=== PATIENT | female | born 1975 | race Caucasian/White ===

== ENCOUNTER 2024-01-17 15:34 | Emergency (ER) | payer OTHER ==
[~2024-01-17] VITALS: Ht 162.6 cm; Wt 88.9 kg
[~2024-01-17 15:34] MED LIST: ACET500 PO; ALBU90OI61; AMIT10 PO; AMIT25 PO; AMIT50 PO; Esgic Tablet1 EACH PO; HYDR10; Inderal 20 mg T20 MG PO; KETO10 PO; LOSA25 PO; MECL25 PO; MEDR10 PO; MIRT15 PO; MIRT30; MIRT30 PO; Motion Sickness25 M1 PO; NICO14TP TOP; NICO21TP TD; Omeprazole20 M1 PO; PROC10 PO; Percocet 5-3251 EACH PO; QUET100 PO; SUMA25 PO; Vibramycin100 MG PO
[2024-01-17 16:14] LABS: Hematocrit 38.7 % (33.0-51.0); Hemoglobin 12.9 g/dL (11.5-16.0); Red Blood Cell Count 4.26 M/mm3 (3.80-5.20); White Blood Cell Count 6.29 K/mm3 (4.00-11.30)
[2024-01-17 16:15] LABS: BASOPHILS ABSOLUTE AUTO 0.02 K/mm3 (0.00-0.23); BASOPHILS PERCENT AUTO 0 % (0-2); EOSINOPHILS ABSOLUTE AUTO 0.23 K/mm3 (0.00-0.68); EOSINOPHILS PERCENT AUTO 4 % (0-6); IMMATURE GRAN ABSOLUTE AUTO 0.01 K/mm3 (0.00-0.10); IMMATURE GRAN PERCENT AUTO 0 % (0-1); LYMPHOCYTES ABSOLUTE AUTO 2.09 K/mm3 (0.84-5.20); LYMPHOCYTES PERCENT AUTO 33 % (21-46); MONOCYTES ABSOLUTE AUTO 0.47 K/mm3 (0.16-1.47); MONOCYTES PERCENT AUTO 8 % (4-13); Mean Corpuscular HGB 30.3 pg (26.0-34.0); Mean Corpuscular HGB Conc 33.3 g/dL (31.5-36.5); Mean Corpuscular Volume 91 fL (80-100); Mean Platelet Volume 10.4 fL (9.1-12.4); NEUTROPHILS ABSOLUTE AUTO 3.47 K/mm3 (1.96-9.15); NEUTROPHILS PERCENT AUTO 55 % (41-73); Platelet Count 181 K/mm3 (150-400); RDW Coefficient Variation 12.7 % (11.7-14.2); RDW Standard Deviation 41.5 fL (35.1-46.3)
[2024-01-17 16:35] LABS: U Amphetamine Screen Not Detected; U Barbituate Screen Not Detected; U Benzodiazapine Screen Not Detected; U Buprenorphine Screen Not Detected; U Cannabinoids Screen DETECTED; U Cocaine Screen Not Detected; U Methadone Screen Not Detected; U Methamphetamine Screen Not Detected; U Opiates Screen Not Detected; U Oxycodone Screen Not Detected; U Phencyclidine Screen Not Detected
[2024-01-17 16:36] LABS: Albumin, Blood 3.8 g/dL (3.4-5.0); Bilirubin, Total 0.3 mg/dL (0.1-1.0); Bun/Creatinine Ratio 16.1 (12.0-20.0); Calcium, Blood 8.8 mg/dL (8.5-10.1); Creatinine, Blood 0.62 mg/dL (0.40-1.00); Globulin, Blood 3.7 g/dL (2.2-4.0); Potassium, Blood 3.4 mmol/L (3.5-5.5); Total Protein, Blood 7.5 g/dL (6.4-8.2)
[2024-01-17] MEDS ORDERED: OLANZAPINE1024 PO (19:40)
[2024-01-17] MEDS ORDERED: Ibuprofen 600 MG Tab PO ONE (20:15)
[2024-01-17 20:22] VITALS: BP 189/74
== END 2024-01-17 20:25 | disposition home or self-care (01) ==
LOC: ER 15:34
PROVIDERS: Physician Assistant
DX: R07.82 Intercostal pain (principal); J45.909 Unspecified asthma, uncomplicated; F17.210 Nicotine dependence, cigarettes, uncomplicated; Z79.899 Other long term (current) drug therapy; Z88.5 Allergy status to narcotic agent; Z88.6 Allergy status to analgesic agent; Z91.048 Other nonmedicinal substance allergy status
CPT/HCPCS: 71046; 80053; 83690; 84484; 85025; 93005; 93010; 99285-25; A9270

== ENCOUNTER 2024-02-05 12:03 | Inpatient (IN) | payer OTHER ==
[~2024-02-05 12:03] MED LIST changes: +OLANZAPINE1024 PO
[2024-02-05] MEDS ORDERED: LOSA50 PO (15:40)
[2024-02-05] MEDS ORDERED: LORazepam 2 MG Tab PO PRN ×2 (15:50)
[2024-02-05] MEDS ORDERED: Haloperidol 5 MG Tab PO PRN ×2 (15:50→15:55)
[2024-02-05] MEDS ORDERED: FLU VACC TS2024-25(6MOS UP)/PF 45 MCG/0.5 ML SYRINGE IM SCH (15:50)
[2024-02-05] MEDS ORDERED: Nicotine 21 MG PATCH TOP ONE (17:25)
--- NOTE | 2024-02-05 17:56 | NUR ---
Shift Summary Pt A/O x4; pleasant and cooperative with care. She was admitted from the ED for depression with SI. She currently denies SI but does feel very hopeless. She was recently incarcerated and is currently living at the [facility]. She denies HI but does report some AH and VH, however they are non-commanding. Pt was oriented to the unit and given a snack/shower. Home medications reconciled. Pt monitored via Q15 checks for safety.
[2024-02-05] MEDS ORDERED: Acetaminophen 500 MG Tab PO PRN (19:20)
--- NOTE | 2024-02-06 04:22 | NUR ---
Helene resting in bed at start of shift appearing well-groomed, appears well-groomed with sad and depressed affect. Endorses passive SI with no plan and stated I feel much better now that I am here. Pt reported feeling tired, and wanting to just rest. Patient did come out of room and attend snack time with peers. PRN Tylenol given as ordered for 10 headache with the medication being effective. Pt retired to room independently, fell asleep without difficulty, and appeared to sleep all of shift, with normal chest rise and fall observed. Safety checks maintained at 15-minute intervals throughout shift.
[2024-02-06 07:29] VITALS: BP 121/80
--- NOTE | 2024-02-06 08:22 | NUR ---
AM ASSESSMENT PT PLEASANT AND COOPERATIVE. DENIES SI/HI AVH AT THIS TIME. PT REPORTS HOME MEDS OF ZYPREXA, LOSARTAN, AND ALB INH. WILL INFORM PROVIDER THIS A.M. PT REPORTS HX OF SMOKING AND REQUESTING MORNING LILLY PATCH. PT CONTINUES TO HANG OUT AROUND NURSES STATION TO OBSERVE AND NOT BE SECULED. WILL CONTINUE TO MONITOR AND PROVIDE SUPPORT NEEDED.
[2024-02-06] MEDS ORDERED: Nicotine 21 MG PATCH TOP SCH (09:00)
[2024-02-06] MEDS ORDERED: TraZODone HCl 50 MG Tab PO PRN (10:35)
[2024-02-06] MEDS ORDERED: Albuterol HFA200 ACT/6.7 GM INH INH PRN (11:45)
[2024-02-06] MEDS ORDERED: Losartan Potassium 50 MG Tab PO ONE (12:30)
[2024-02-06] MEDS ORDERED: OLANZapine 10 MG Tab PO ONE (12:30)
--- NOTE | 2024-02-06 18:03 | NUR ---
SHIFT ASSESSMENT PT VERY PLEASANT AND COOPERATIVE. PT DENIES SI/HI OR AVH THIS SHIFT. PT STARTED HOME MEDS TODAY OF ZYPREXA AND LOSARTAN, PROVIDER ORDERED TRAZODONE @HS. PT USE OF TYLENOL 2X TODAY FOR HEADACHE 01/03 AND 12/04 PAIN. PT USE OF 21MG LILLY PATCH. PT SPOKE WITH DAD THIS AFTERNOON WHO IN AN INPATIENT AT [facility] AND SCHEDULED VISIT TOMORROW. PT HAS PARTICIPATED IN GROUPS AND ACTIVITIES W/ PEERS AND STAFF W/OUT CONCERN. WILL CONTINUE TO MONITOR AND PROVIDE SUPPORT NECESSARY.
[2024-02-06] MEDS ORDERED: Simethicone 80 MG Chew PO PRN (19:21)
[2024-02-06 20:30] VITALS: BP 123/82
[2024-02-06] MEDS ORDERED: OLANZapine 10 MG Tab PO SCH (21:00)
--- NOTE | 2024-02-06 22:50 | NUR ---
Helene resting in bed at the start of shift reading a book. Pt reported feeling better today, and endorsed intermittent thoughts of SI. Pt endorsed having an earache; Tylenol given with HS meds along with Simethicone for complaints of gas. Patient ate HS snack with peers and retired to room independently. Patient fell asleep without difficulty with normal chest rise and fall observed. Safety checks maintained at 15-minute intervals throughout the shift.
--- NOTE | 2024-02-07 04:22 | NUR ---
PATIENT WAS IN BED RESTING WHEN THIS RN CAME ON DUTY AT 0000. SHE CONTINUES TO REST QUIETLY IN BED WITH RESPIRATIONS CONFIRMED. SHE HAS HAD NO S/SX SUICIDAL IDEATION OR SELF HARM THIS SHIFT. CONTINUING TO MONITOR FOR SAFETY WITH Q15 MINUTE CHECKS.
[2024-02-07] MEDS ORDERED: Losartan Potassium 50 MG Tab PO SCH (09:00)
--- NOTE | 2024-02-07 18:07 | NUR ---
SHIFT SUMMARY PT AA&OX4. PLEASANT AND COOPERATIVE WITH CARE. SHE IS COMPLIANT WITH MEDICATIONS. SHE DENIES ANY ADVERSE EFFECTS. PT SOFT SPOKEN BUT ANSWERS QUESTIONS APPROPRIATELY SHE DENIES SI, AVH. SHE HAS BEEN UP FOR MEALS, SHOWERS, GROUPS, AND PARTICIPATING WITH [facility]. PT SPOKE WITH DR. CRUZ AND PLAN IS FOR EARLY DC TOMORROW. SHE HAS NO NEEDS OR CONCERNS AT THIS TIME. WILL CONTINUE POC
[2024-02-07 20:22] VITALS: BP 134/86
--- NOTE | 2024-02-07 21:02 | NUR ---
[facility] SHIFT ASSESSMENT PT VERY PLEASANT AND COOPERATIVE THIS EVENING. PT INFORMS OF MORNING DISCHARGE AND LOOKING FORWARD TO DISCHARGE ALTHOUGH GOING BACK TO [facility] [place]. PT REQUESTED [facility] SO SHE COULD FIND WHERE HER FATHER LIVES AND VISIT. PT REPORTS FATHER DISCHARGED TODAY FROM [facility]. PT DISCUSSING POSITIVE FOLLOW UP PLANS AFTER DISCHARGE OF EMPLOYMENT AND HOUSING AND LOOKING FORWARD TO MOVING FORWARD IN LIFE. WILL CONTINUE TO MONITOR AND PROVIDE SUPPORT NECESSARY.
--- NOTE | 2024-02-07 23:25 | NUR ---
PT UP TO NURSES STATION, REQUESTING MORE TEA
--- NOTE | 2024-02-08 05:07 | NUR ---
SHIFT SUMMARY PT SLEPT T/O NIGHT, PLANS FOR DISCHARGE THIS MORNING. PT REQUESTING AND PROVIDED WITH MAP OF [facility]. PT REPORTS READY FOR DISCHARGE ALTHOUGH RETURNING TO [facility]. PT THANKFUL FOR STAFF AND CARE RECIEVED. PT CONTINUES TO C/O HEADACHE THAT IS RELIEVED W/ TYLENOL 500MG. NO OTHER CHANGES OR CONCERNS THIS SHIFT. WILL CONTINUE TO MONITOR AND PROVIDE SUPPORT NECESSARY.
[2024-02-08 08:11] VITALS: BP 138/93
[2024-02-08] MEDS ORDERED: TRAZ50 PO (11:18)
--- NOTE | 2024-02-08 17:28 | NUR ---
DC NOTE. PT EDUCATED ON MEDICATIONS, MENTAL HEALTH DX, MEDICAL RECORDS DC INSTUCTIONS, AND HOW TO ACCESS [facility]. SHE DENIED ANY QUESTIONS AT THIS TIME RX FAXED TO [facility]. CALLED TO CONFIRM. KAT CALLED TO TAKE PT TO PHARMACY AND [facility]. PT DC @[phone]
== END 2024-02-08 13:00 | disposition home or self-care (01) | DRG 885 ==
LOC: BHU 12:03
PROVIDERS: ADMIT Psychiatry & Neurology Psychiatry
DX: F31.9 Bipolar disorder, unspecified (principal); R45.851 Suicidal ideations; F41.9 Anxiety disorder, unspecified; F43.10 Post-traumatic stress disorder, unspecified; Z88.8 Allergy status to other drugs, medicaments and biological substances; Z91.040 Latex allergy status; Z88.5 Allergy status to narcotic agent; Z91.014 Allergy to mammalian meats; Z91.048 Other nonmedicinal substance allergy status; Z88.6 Allergy status to analgesic agent; Z79.899 Other long term (current) drug therapy; F17.210 Nicotine dependence, cigarettes, uncomplicated; Z98.890 Other specified postprocedural states; F12.90 Cannabis use, unspecified, uncomplicated
CPT/HCPCS: A9270